=== PATIENT | male | born 1950 | race Caucasian/White ===

== ENCOUNTER → 2021-05-04 08:11 | Outpatient (BNVA) | payer BC, SELFPAY | PROVIDERS: PCP Internal Medicine; Visit Provider Urology | DX: N52.9 Male erectile dysfunction, unspecified (principal); R97.20 Elevated prostate specific antigen [PSA]; N40.1 Benign prostatic hyperplasia with lower urinary tract symptoms; R39.14 Feeling of incomplete bladder emptying | CPT/HCPCS: 51798 ==

== ENCOUNTER → 2022-05-10 13:28 | Outpatient (BNVA) | payer MEDICARE, SELFPAY | PROVIDERS: PCP Internal Medicine; Visit Provider Urology | DX: R97.20 Elevated prostate specific antigen [PSA] (principal); N52.9 Male erectile dysfunction, unspecified; N40.1 Benign prostatic hyperplasia with lower urinary tract symptoms; R39.12 Poor urinary stream; R35.1 Nocturia; Z87.442 Personal history of urinary calculi | CPT/HCPCS: 51798; 99212 ==

== ENCOUNTER 2023-01-11 15:18 | Outpatient (AMB) | payer MEDICARE, SELFPAY ==
--- NOTE | 2023-01-11 15:19 | MHC.OFFVIS ---
Intake Intake Visit Reasons: 1Y PSA(set) Intake Note: Patient is present for Telephone Urology Med:Finasteride, Tamsulosin Antibiotic Allergy:None Blood Thinner: None [facility]acy: [facility] Allergies No Known Allergies Allergy (Verified 05/10/22 13:42) Medication List - Last Reconciled 01/11/23 by Hossein Godfrey MD atorvastatin 80 mg PO DAILY finasteride 5 mg PO DAILY 90 days latanoprost 0.005% 1 drp ophthalmic (eye) BEDTIME metoprolol succinate ER 50 mg PO DAILY omeprazole 40 mg PO DAILY tamsulosin 0.8 mg (2 x 0.4 mg) PO BEDTIME 90 days HPI HPI Comments History of Present Illness Details ?Sanchez MARIE is a very pleasant male. He is a patient of Dr Burrell. He is seen in the office today for the following urologic conditions. - lower urinary tract symptoms - nephrolithiasis - erectile dysfunction Telemedicine Evaluation 15 min Consultation Doximity Yana Video attempted PSA 01/04 2.3 Lower Urinary Tract Symptoms:? Current visit is for?further evaluation of, lower urinary tract symptoms, predominate obstructive symptoms.? Current treatment includes?medication, alpha anny 0.8mg ? Prostate Symptom Score?08/31 , Mild (0-8), Bother 3.? Symptoms include?08/31, weak stream, nocturia (>2), and are progressing.? PSA?07/31 3.4, 03/02 4.0 F 20%, 03/02 3.8 - DNA urine analysis approximate 20% chance was offered biopsy, 12/01 2.2, 04/04 1.9, 04/05 3.8 (reduced finasteride), 01/04 2.3 ? Treatment plan?Surveillance.? Nephrolithiasis/Urolithiasis:? Urolithiasis was diagnosed?11/2017 flank pain.? The patient previously had kidney stones whose composition w?unknown.? Laboratory investigations include?03/01 , Base line serum evaluation, Normocalcemia (9.0), Normal PTH, Normal uric acid.? 24 Hour urine evaluation?03/01 , Low Urine volume < 2.0 liters, Low calcium < 200, High Citrate, High oxalate > 30mg - 54 ?08/31 , Low Urine volume < 2.0 liters, Low calcium < 200, High Citrate, Low Oxalate < 30.? Prior treatment(s) include?observation.? Prior imaging includes?11/29 , a CT (computed tomography) scan of the abdomen/pelvis (stone protocol) - 4mm right UVJ, 4mm right renal ?03/01 , a renal ultrasound, showing no evidence of stones ?08/31 , a renal ultrasound, showing no evidence of stones.? Current therapeutic plan will be?to continue with imaging surveillance, General advice to maintain good fluid intake for urine greater than 1.5 L per day, reduce salt and reduce protein and acid loads was provided FORMERLY [facility], [facility] Medical History Benign prostatic hyperplasia with lower urinary tract symptoms Calculus of kidney Elevated prostate specific antigen [PSA] Feeling of incomplete bladder emptying Weak urinary stream Review of Systems Const All systems reviewed & are unremarkable except as noted in HPI and below Reports no additional complaints Resp Reports no additional complaints GI Reports no additional complaints Reports as per HPI Musc Reports no additional complaints Physical Exam Telemedicine evaluation Appropriate responses Regular breathing rate and rhythm HEENT Head: Yes normal to inspection Ears: hearing grossly normal bilaterally Eyes General: appearance normal, both eyes and all related structures Neck Neck: Yes normal visual inspection Chest Chest palpation & inspection: normal inspection of the chest Resp Effort & Inspection: normal respiratory effort and able to speak in complete sentences Assessment & Plan Assessment & Plan (1) Erectile dysfunction: Code(s): N52.9 - Male erectile dysfunction, unspecified (2) Elevated prostate specific antigen [PSA]: Code(s): R97.20 - Elevated prostate specific antigen [PSA] (3) Calculus of kidney: Code(s): N20.0 - Calculus of kidney (4) Benign prostatic hyperplasia with lower urinary tract symptoms: Code(s): N40.1 - Benign prostatic hyperplasia with lower urinary tract symptoms Plan Twelve month follow-up Orders: Orders PSA,Total (Free>4and<10) 364 Days N40.1 - Benign prostatic hyperplasia with lower urinary tract symptoms Medications: Refilled finasteride 5 mg PO DAILY 90 tabs 3RF 90 days tamsulosin 0.8 mg (2 x 0.4 mg) PO BEDTIME 180 caps 3RF 90 days Patient Instructions: Imaging studies, laboratory and physical exam results were discussed and reviewed in detail. No major barriers to patient understanding were identified. An opportunity to ask questions regarding the treatment plan was provided. All questions were answered. The patient expressed understanding and agreement with the above treatment plan. The patient is aware they should contact our office by phone for worsening of their current condition or the appearance of new urologic symptoms. Compliance is encouraged with any medications and followup testing that is ordered. It is a privilege to participate in the urologic care of your patient. If you have any questions or concerns regarding treatment for the above conditions, or other urologic issues, please do not hesitate to contact me. The office telephone contact is [phone]. This note is constructed using voice recognition software. While every effort has been made to ensure accuracy mushroom spawn maker errors may have been included. Yours sincerely, Dr Hossein Godfrey MD, [facility] - Urology Providers of Expert, Compassionate Care for the Genitourinary System Telehealth Telehealth Location of provider rendering services: practice address Location of patient: address on file Patient Identification confirmed using: Name, : Yes Telehealth method: video Patient verbally consented to treatment: Yes Patient verbally consented to billing insurance company: Yes Patient informed of any privacy concerns related to visit: Yes Coding Level of Care Code Tele Est Pt Level 4 (39460) Diagnoses Erectile dysfunction N52.9 Elevated prostate specific antigen [PSA] R97.20 Calculus of kidney N20.0 Benign prostatic hyperplasia with lower urinary tract symptoms N40.1
== END 2023-01-11 15:48 | disposition home or self-care (01) ==
LOC: HO.HUSH 15:18
PROVIDERS: PCP Internal Medicine; Visit Provider Urology
DX: N52.9 Male erectile dysfunction, unspecified (principal); R97.20 Elevated prostate specific antigen [PSA]; N20.0 Calculus of kidney; N40.1 Benign prostatic hyperplasia with lower urinary tract symptoms
CPT/HCPCS: 99213

== ENCOUNTER → 2023-01-11 15:18 | Outpatient (BNVA) | payer MEDICARE, SELFPAY | PROVIDERS: PCP Internal Medicine; Visit Provider Urology ==

== ENCOUNTER 2024-02-09 14:50 | Outpatient (AMB) | payer MEDICARE, SELFPAY ==
--- NOTE | 2024-02-09 14:56 | MHC.OFFVIS ---
Intake Visit Reasons: 1Y Follow up-PSA/PVR(set) Intake Note: Patient is Present for PVR/PSA Urology Med: Finasteride, Tamsulosin Antibiotic Allergy: None Blood Thinner: None Last PVR: 274 (2022) Todays PVR: Recent PSA: 02/05/2024 PSA: 2.8 Bench Assembly Inspector Required: No Accompanied by: Self / Same As Patient Allergies No Known Allergies Allergy (Verified 02/09/24 15:00) HPI Comments Details: ?Sanchez MARIE is a very pleasant male. He is a patient of Dr Burrell. He is seen in the office today for the following urologic conditions. - lower urinary tract symptoms - nephrolithiasis - erectile dysfunction Yearly follow-up Slight PSA rise Remains on combination tamsulosin with finasteride May try coming off tamsulosin Had required b.i.d. tablets Lost his is May 16 three-week cancer process - liver PSA 01/04 2.3, 02/05 2.8 Lower Urinary Tract Symptoms:? Current visit is for?further evaluation of, lower urinary tract symptoms, predominate obstructive symptoms.? Current treatment includes?medication, alpha anny 0.8mg ? Prostate Symptom Score?08/31 , Mild (0-8), Bother 3.? Symptoms include?08/31, weak stream, nocturia (>2), and are progressing.? PSA?07/31 3.4, 03/02 4.0 F 20%, 03/02 3.8 - DNA urine analysis approximate 20% chance was offered biopsy, 12/01 2.2, 04/04 1.9, 04/05 3.8 (reduced finasteride), 01/04 2.3, 02/09 2.8 ? Treatment plan?Surveillance.? Nephrolithiasis/Urolithiasis:? Urolithiasis was diagnosed?11/2017 flank pain.? The patient previously had kidney stones whose composition w?unknown.? Laboratory investigations include?03/01 , Base line serum evaluation, Normocalcemia (9.0), Normal PTH, Normal uric acid.? 24 Hour urine evaluation?03/01 , Low Urine volume < 2.0 liters, Low calcium < 200, High Citrate, High oxalate > 30mg - 54 ?08/31 , Low Urine volume < 2.0 liters, Low calcium < 200, High Citrate, Low Oxalate < 30.? Prior treatment(s) include?observation.? Prior imaging includes?11/29 , a CT (computed tomography) scan of the abdomen/pelvis (stone protocol) - 4mm right UVJ, 4mm right renal ?03/01 , a renal ultrasound, showing no evidence of stones ?08/31 , a renal ultrasound, showing no evidence of stones.? Current therapeutic plan will be?to continue with imaging surveillance, General advice to maintain good fluid intake for urine greater than 1.5 L per day, reduce salt and reduce protein and acid loads was provided REPLACED BY [facility] Medical History Weak urinary stream Benign prostatic hyperplasia with lower urinary tract symptoms Feeling of incomplete bladder emptying Calculus of kidney Elevated prostate specific antigen [PSA] Review of Systems Const Denies chills and Denies fever(s) Card Reports no additional complaints and Denies syncope Resp Denies cough GI Denies abdominal pain and Denies heartburn Reports as per HPI and Denies change in libido Neuro Denies syncope Psych Denies change in libido Endo Denies change in libido Physical Exam Const General: cooperative, healthy appearing, comfortable and no acute distress Orientation/consciousness: patient oriented x3 HEENT Face and sinus: Yes normal facial exam Mouth: moist mucous membranes Neck Neck: Yes normal visual inspection, Yes full ROM and Yes trachea midline Chest Chest palpation & inspection: normal inspection of the chest Resp Effort & Inspection: normal respiratory effort, able to speak in complete sentences and no respiratory distress GI Inspection: Yes normal to inspection Back/Spine/Pelvis Cervical Spine: normal cervical lordosis Thoracic/Lumbar Spine: thoracic and lumbar spine normal to inspection Skin General skin exam: no rashes or lesions noted Neuro General: patient oriented x3, gait normal, tone normal and moves all extremities Extrem General: Yes normal to inspection and Yes capillary refill normal Assessment & Plan Assessment & Plan (1) Erectile dysfunction: Code(s): N52.9 - Male erectile dysfunction, unspecified Category: Medical (2) Benign prostatic hyperplasia with lower urinary tract symptoms: Code(s): N40.1 - Benign prostatic hyperplasia with lower urinary tract symptoms Category: Medical Plan Twelve month follow-up PSA Orders: Orders AMB Post Void Residual by ultrasound 02/09/24 R39.14 - Feeling of incomplete bladder emptying Prostate Specific Antigen 02/02/24 R97.20 - Elevated prostate specific antigen [PSA] Prostate Specific Antigen 364 Days N40.1 - Benign prostatic hyperplasia with lower urinary tract symptoms Patient Instructions: Imaging studies, laboratory and physical exam results were discussed and reviewed in detail. No major barriers to patient understanding were identified. An opportunity to ask questions regarding the treatment plan was provided. All questions were answered. The patient expressed understanding and agreement with the above treatment plan. The patient is aware they should contact our office by phone for worsening of their current condition or the appearance of new urologic symptoms. Compliance is encouraged with any medications and followup testing that is ordered. It is a privilege to participate in the urologic care of your patient. If you have any questions or concerns regarding treatment for the above conditions, or other urologic issues, please do not hesitate to contact me. The office telephone contact is [phone]. This note is constructed using voice recognition software. While every effort has been made to ensure accuracy legal director errors may have been included. Yours sincerely, Dr Hossein Godfrey MD, [facility] - Urology Providers of Expert, Compassionate Care for the Genitourinary System Coding Level of Care Code Est Pt Level 4 (00511) Diagnoses Erectile dysfunction N52.9 Benign prostatic hyperplasia with lower urinary tract symptoms N40.1
== END 2024-02-09 15:15 | disposition home or self-care (01) ==
LOC: HO.HUSH 14:50
PROVIDERS: PCP Internal Medicine; Visit Provider Urology
DX: N52.9 Male erectile dysfunction, unspecified (principal); N40.1 Benign prostatic hyperplasia with lower urinary tract symptoms
CPT/HCPCS: 99214

== ENCOUNTER → 2024-02-09 14:50 | Outpatient (BNVA) | payer MEDICARE, SELFPAY | PROVIDERS: PCP Internal Medicine; Visit Provider Urology | DX: N52.9 Male erectile dysfunction, unspecified (principal); N40.1 Benign prostatic hyperplasia with lower urinary tract symptoms; R39.14 Feeling of incomplete bladder emptying; R97.20 Elevated prostate specific antigen [PSA]; Z87.442 Personal history of urinary calculi; Z79.899 Other long term (current) drug therapy | CPT/HCPCS: 99212 ==